=== PATIENT | male | born 1935 | race Caucasian/White ===

== ENCOUNTER 2021-11-13 11:05 | Outpatient (CLI) | payer MEDICARE, SELFPAY ==
--- NOTE | ~2021-11-13 | CT_ITS ---
EXAMINATION:CT diagnostic chest wo con DATE: 11/13/2021 11:54 INDICATION: Lung nodule. Chronic shortness of breath. TECHNIQUE: Computed tomography (CT) of the chest was performed without intravenous contrast. Automate d exposure control and iterative reconstruction technique were employed. The dose-length product (DLP ) was 153.40 mGy-cm. COMPARISON: None. FINDINGS: There are moderate-sized right and small left pleural effusions. A calcified left lung nodu le and calcified left hilar lymph nodes are consistent with old granulomatous disease. There is passi ve atelectasis in right lower lobe and right middle lobe. There is mild atelectasis in left lung. The re is smooth septal thickening in the lungs, consistent with mild pulmonary edema. Cardiomegaly is no stephanie. There are coronary artery calcifications. No pericardial effusion. There is a left chest pacer w ith lead in right ventricle. Calcifications in the spleen are consistent with old granulomatous disea se. There are cysts in left kidney measuring up to 17 mm. There are old healed right rib fractures. T here are bridging endplate osteophytes at multiple levels in the spine, consistent with diffuse idiop athic skeletal hyperostosis (DISH). There is severe thoracic spondylosis. IMPRESSION: 1. Mild pulmonary edema. 2. Moderate-sized right and small left pleural effusions. 3. Cardiomegaly. Reviewed, dictated and finalized at location A.
[2021-11-13 11:35] LABS: Basophils Absolute Auto 0.06 K/mm3 (0.00-0.10); Eosinophils Absolute Auto 0.07 K/mm3 (0.02-0.50); Eosinophils Percent Auto 1.1 % (1.0-6.0); Hematocrit 31.4 % (37.0-46.0); Hemoglobin 10.3 g/dL (12.4-15.3); Immature Granulocyte Absolute 0.02 K/mm3 (0.00-0.00); Immature Granulocyte Percent A 0.3 % (0.0-0.0); Lymphocytes Absolute Auto 0.74 K/mm3 (1.10-4.50); Lymphocytes Percent Auto 11.8 % (18.0-42.0); Mean Corpuscular HGB Conc 32.8 g/dL (32.0-36.0); Mean Corpuscular Hemoglobin 33.6 pg (27.0-31.0); Mean Corpuscular Volume 102.3 fL (78.0-102.0); Mean Platelet Volume 9.6 fl (8.7-11.0); Monocytes Absolute Auto 0.72 K/mm3 (0.10-0.90); Monocytes Percent Auto 11.5 % (2.0-11.0); Neutrophils Absolute Auto 4.7 K/mm3 (1.7-7.2); Neutrophils Percent Auto 74.3 % (50.0-70.0); Platelet Count Result 220 K/mm3 (150-420); Red Blood Count 3.07 M/mm3 (4.70-6.10); Red Cell Distribution Width 13.6 % (11.6-14.4); White Blood Count 6.3 K/mm3 (4.8-10.8)
[2021-11-13 11:52] LABS: Blood Urea Nitrogen 27 mg/dL (7-18); Calcium 9.2 mg/dL (8.5-10.1); Carbon Dioxide 27 mmol/L (21-32); Estimated Glomerular Filt Rate 46; Glucose 105 mg/dL (70-99)
[2021-11-13 12:29] LABS: Anion Gap 12 mmol/L (8-16); Chloride 102 mmol/L (98-108); Osmolality Calculated 297 mOsm/kg (285-295); Potassium 3.4 mmol/L (3.5-5.1); Sodium 141 mmol/L (136-145)
== END 2021-11-13 11:06 | disposition home or self-care (01) ==
LOC: CHSLAB 11:14
PROVIDERS: PCP Family Medicine
DX: I48.19 Other persistent atrial fibrillation (principal); I42.0 Dilated cardiomyopathy
CPT/HCPCS: 36415; 71250; 80048; 85025

== ENCOUNTER 2021-12-13 11:28 | Outpatient (CLI) | payer MEDICARE, SELFPAY ==
[2021-12-13 12:11] LABS: Anion Gap 7 mmol/L (8-16); Blood Urea Nitrogen 25 mg/dL (7-18); Calcium 9.1 mg/dL (8.5-10.1); Carbon Dioxide 29 mmol/L (21-32); Chloride 102 mmol/L (98-108); Estimated Glomerular Filt Rate 46; Glucose 99 mg/dL (70-99); Osmolality Calculated 290 mOsm/kg (285-295); Potassium 4.3 mmol/L (3.5-5.1); Sodium 138 mmol/L (136-145)
== END 2021-12-13 11:29 | disposition home or self-care (01) ==
LOC: CHSLAB 11:32
PROVIDERS: PCP Internal Medicine
DX: E87.6 Hypokalemia (principal)
CPT/HCPCS: 36415; 80048

== ENCOUNTER 2022-05-31 09:15 | Outpatient (CLI) | payer MEDICARE, SELFPAY ==
[2022-05-31 09:33] LABS: Basophils Absolute Auto 0.05 K/mm3 (0.00-0.10); Basophils Percent Auto 0.6 % (0.0-1.0); Eosinophils Absolute Auto 0.09 K/mm3 (0.02-0.50); Eosinophils Percent Auto 1.2 % (1.0-6.0); Hematocrit 39.9 % (37.0-46.0); Hemoglobin 12.8 g/dL (12.4-15.3); Immature Granulocyte Absolute 0.04 K/mm3 (0.00-0.00); Immature Granulocyte Percent A 0.5 % (0.0-0.0); Lymphocytes Absolute Auto 0.92 K/mm3 (1.10-4.50); Lymphocytes Percent Auto 11.9 % (18.0-42.0); Mean Corpuscular HGB Conc 32.1 g/dL (32.0-36.0); Mean Corpuscular Hemoglobin 30.2 pg (27.0-31.0); Mean Corpuscular Volume 94.1 fL (78.0-102.0); Monocytes Absolute Auto 0.78 K/mm3 (0.10-0.90); Monocytes Percent Auto 10.1 % (2.0-11.0); Neutrophils Absolute Auto 5.8 K/mm3 (1.7-7.2); Neutrophils Percent Auto 75.7 % (50.0-70.0); Platelet Count Result 236 K/mm3 (150-420); Red Blood Count 4.24 M/mm3 (4.70-6.10); Red Cell Distribution Width 14.1 % (11.6-14.4); White Blood Count 7.7 K/mm3 (4.8-10.8)
[2022-05-31 10:06] LABS: Alanine Aminotransferase 24 U/L (16-63); Albumin Level 3.7 g/dL (3.4-5.0); Alkaline Phosphatase 136 U/L (46-116); Anion Gap 9 mmol/L (8-16); Aspartate Amino Transferase 19 U/L (15-37); Bilirubin,Total 1.4 mg/dL (0.00-1.00); Blood Urea Nitrogen 22 mg/dL (7-18); Calcium 9.3 mg/dL (8.5-10.1); Carbon Dioxide 29 mmol/L (21-32); Chloride 103 mmol/L (98-108); Cholesterol 146 mg/dL (0-200); Estimated Glomerular Filt Rate 47; Glucose 108 mg/dL (70-99); HDL Direct 59 mg/dL (40-60); LDL Cholesterol Calculated 75 mg/dL (<130); Osmolality Calculated 296 mOsm/kg (285-295); Potassium 4.5 mmol/L (3.5-5.1); Sodium 141 mmol/L (136-145); Total Protein 7.3 g/dL (6.4-8.2); Triglycerides 61 mg/dL (0-150)
== END 2022-05-31 09:16 | disposition home or self-care (01) ==
LOC: CHSLAB 09:19
PROVIDERS: PCP Family Medicine
DX: R00.1 Bradycardia, unspecified (principal); E87.6 Hypokalemia; I48.19 Other persistent atrial fibrillation; Z13.220 Encounter for screening for lipoid disorders; Z13.6 Encounter for screening for cardiovascular disorders
CPT/HCPCS: 36415; 80053; 80061; 85025

== ENCOUNTER 2022-12-02 10:25 | Outpatient (CLI) | payer MEDICARE, SELFPAY ==
[2022-12-02 10:43] LABS: Basophils Absolute Auto 0.04 K/mm3 (0.00-0.10); Basophils Percent Auto 0.7 % (0.0-1.0); Eosinophils Absolute Auto 0.06 K/mm3 (0.02-0.50); Hematocrit 35.7 % (37.0-46.0); Hemoglobin 11.3 g/dL (12.4-15.3); Immature Granulocyte Absolute 0.02 K/mm3 (0.00-0.00); Immature Granulocyte Percent A 0.3 % (0.0-0.0); Lymphocytes Absolute Auto 0.76 K/mm3 (1.10-4.50); Lymphocytes Percent Auto 12.6 % (18.0-42.0); Mean Corpuscular HGB Conc 31.7 g/dL (32.0-36.0); Mean Corpuscular Hemoglobin 28.4 pg (27.0-31.0); Mean Corpuscular Volume 89.7 fL (78.0-102.0); Monocytes Absolute Auto 0.68 K/mm3 (0.10-0.90); Monocytes Percent Auto 11.3 % (2.0-11.0); Neutrophils Absolute Auto 4.5 K/mm3 (1.7-7.2); Neutrophils Percent Auto 74.1 % (50.0-70.0); Platelet Count Result 243 K/mm3 (150-420); Red Blood Count 3.98 M/mm3 (4.70-6.10); Red Cell Distribution Width 18.2 % (11.6-14.4)
[2022-12-02 11:20] LABS: Alanine Aminotransferase 27 U/L (16-63); Albumin Level 3.2 g/dL (3.4-5.0); Alkaline Phosphatase 137 U/L (46-116); Anion Gap 12 mmol/L (8-16); Aspartate Amino Transferase 19 U/L (15-37); Bilirubin,Total 1.2 mg/dL (0.00-1.00); Blood Urea Nitrogen 20 mg/dL (7-18); Calcium 9.1 mg/dL (8.5-10.1); Carbon Dioxide 27 mmol/L (21-32); Chloride 102 mmol/L (98-108); Cholesterol 126 mg/dL (0-200); Estimated Glomerular Filt Rate 45; Glucose 94 mg/dL (70-99); HDL Direct 54 mg/dL (40-60); LDL Cholesterol Calculated 60 mg/dL (<130); Osmolality Calculated 294 mOsm/kg (285-295); Potassium 4.4 mmol/L (3.5-5.1); Sodium 141 mmol/L (136-145); Total Protein 7.1 g/dL (6.4-8.2); Triglycerides 58 mg/dL (0-150)
== END 2022-12-02 10:26 | disposition home or self-care (01) ==
LOC: CHSLAB 10:29
PROVIDERS: PCP Family Medicine
DX: I48.21 Permanent atrial fibrillation (principal); Z13.220 Encounter for screening for lipoid disorders; I42.0 Dilated cardiomyopathy; Z13.6 Encounter for screening for cardiovascular disorders
CPT/HCPCS: 36415; 80053; 80061; 85025

== ENCOUNTER 2023-09-01 11:14 | Outpatient (CLI) | payer MEDICARE, SELFPAY ==
[2023-09-01 11:50] LABS: Basophils Absolute Auto 0.04 K/mm3 (0.00-0.10); Basophils Percent Auto 0.5 % (0.0-1.0); Eosinophils Absolute Auto 0.02 K/mm3 (0.02-0.50); Eosinophils Percent Auto 0.2 % (1.0-6.0); Hematocrit 33.7 % (37.0-46.0); Immature Granulocyte Absolute 0.04 K/mm3 (0.00-0.00); Immature Granulocyte Percent A 0.5 % (0.0-0.0); Lymphocytes Absolute Auto 0.55 K/mm3 (1.10-4.50); Lymphocytes Percent Auto 6.8 % (18.0-42.0); Mean Corpuscular HGB Conc 29.7 g/dL (32-36); Mean Corpuscular Hemoglobin 25.7 pg (27.0-31.0); Mean Corpuscular Volume 86.6 fL (78.0-102.0); Mean Platelet Volume 9.7 fl (8.7-11.0); Monocytes Absolute Auto 0.76 K/mm3 (0.10-0.90); Monocytes Percent Auto 9.3 % (2.0-11.0); Neutrophils Absolute Auto 6.73 K/mm3 (1.70-7.20); Neutrophils Percent Auto 82.7 % (50.0-70.0); Platelet Count Result 293 K/mm3 (150-420); Red Blood Count 3.89 M/mm3 (4.70-6.10); White Blood Count 8.1 K/mm3 (4.8-10.8)
[2023-09-01 12:20] LABS: Anion Gap 11 mmol/L (4-12); Blood Urea Nitrogen 25 mg/dL (7-18); Calcium 9.2 mg/dL (8.5-10.1); Carbon Dioxide 29 mmol/L (21-32); Chloride 103 mmol/L (98-108); Estimated Glomerular Filt Rate 48; Glucose 97 mg/dL (70-99); Osmolality Calculated 300 mOsm/kg (285-295); Potassium 4.4 mmol/L (3.5-5.1); Sodium 143 mmol/L (136-145)
== END 2023-09-01 11:15 | disposition home or self-care (01) ==
LOC: CHSLAB 11:18
PROVIDERS: PCP Family Medicine
DX: I48.19 Other persistent atrial fibrillation (principal); R06.00 Dyspnea, unspecified
CPT/HCPCS: 36415; 80048; 85025

== ENCOUNTER 2023-09-12 10:01 | Emergency (ER) | payer MEDICARE, SELFPAY ==
[2023-09-12] VITALS (32 sets, daily range): BP systolic 89–114; BP diastolic 64–88; PULSE 68–78; RESP 16–30; TEMP 37; O2SAT 94–100
--- NOTE | ~2023-09-12 | XR_ITS ---
EXAMINATION: XR pelvis 1-2V DATE: 09/12/2023 10:55 INDICATION: Fall TECHNIQUE: An anteroposterior view of the pelvis was obtained. COMPARISON: None. FINDINGS: Diffuse osteopenia which decreases sensitivity for nondisplaced fracture. No fractures identified. Os seous fusion at the left hip joint with screw fixation. There is suggestion of prior loss of bone sto ck at the humeral head and acetabulum with hip fused with some cephalad migration of the left femur. 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 Severe lower lumbar spondylosis. IMPRESSION: 1. No acute osseous abnormality. Sensitivity for nondisplaced fractures decreased by diffuse osteopen ia. 2. Left hip ankylosis with screw fixation. Reviewed, dictated and finalized at location A. IMPRESSION: 1. No acute osseous abnormality. Sensitivity for nondisplaced fractures decreas ed by diffuse osteopenia. 2. Left hip ankylosis with screw fixation.
--- NOTE | ~2023-09-12 | CT_ITS ---
EXAMINATION: CT cervical spine wo con DATE: 09/12/2023 10:55 INDICATION: Fall with head injury TECHNIQUE: Computed tomography (CT) of the cervical spine was performed without intravenous contrast. Automated exposure control and iterative reconstruction technique were employed. The dose-length pro duct was 147.99 mGy-cm. COMPARISON: None FINDINGS: Severe osteoarthritis at the atlantoaxial articulation. Mild cervical levocurvature. 3 mm anterolisth esis C2 on C3 and 2 mm anterolisthesis C7 on T1. Vertebral body heights are normal. No acute fracture . Multilevel severe disc height loss from C2-C3 through C6-C7 and at T1-T2 with moderate disc height loss at C7-T1. There are multilevel associated degenerative endplate changes with severe uncovertebra l osteoarthritis. Severe facet osteoarthritis on the right at C2-C3 and bilaterally at C7-T1 with mod erate facet osteoarthritis the remaining cervical facet joints. Atherosclerotic calcification is at t he bilateral carotid bulbs. Cervical soft tissues are otherwise unremarkable. Pleural effusion of sim ple fluid attenuation at the right apex. IMPRESSION: 1. Severe cervical spondylosis. No acute osseous abnormality. 2. Large right pleural effusion extending to the apex. Reviewed, dictated and finalized at location A.
--- NOTE | ~2023-09-12 | CT_ITS ---
EXAMINATION: CT brain wo con DATE: 09/12/2023 10:54 INDICATION: Accidental fall with facial injury TECHNIQUE: Computed tomography (CT) of the head was performed without intravenous contrast. Sagittal and coronal reconstructions were performed. The mA was adjusted according to patient size. Iterative reconstruction technique was employed. The dose-length product was 605.33 mGy-cm. COMPARISON: None FINDINGS: No fracture. No acute intracranial hemorrhage, acute infarction or abnormal extra axial fluid collect ion. 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 There is mild scattered white matter hypoat tenuation consistent with chronic small vessel ischemic disease. Symmetric prominence of the sulci an d ventricles consistent with mild to moderate age-appropriate diffuse cerebral volume loss. Ventricle s are normal and symmetric. No mass/mass effect. Changes of bilateral intraocular lens replacement. T he orbits, paranasal sinuses and mastoid air cells are normal. IMPRESSION: 1. No fracture or acute intracranial process. 2. 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 3. Age-related changes including moderate diffuse volume loss and mild scattered white matter hypoatt enuation consistent with chronic small vessel ischemic disease. Reviewed, dictated and finalized at location A. IMPRESSION: 1. No fracture or acute intracranial process. 2. 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 3. Age-related changes including moderate diffuse volume loss and mild scattere d white matter hypoattenuation consistent with chronic small vessel ischemic di sease.
--- NOTE | ~2023-09-12 | XR_ITS ---
EXAMINATION: XR chest 1V portable DATE: 09/12/2023 10:54 INDICATION: Shortness of breath and fall TECHNIQUE: frontal view of the chest was obtained. COMPARISON: Chest CT dated 11/13/2021 FINDINGS: Near complete opacification of the right hemithorax consistent with large right pleural effusion. The re is small amount of residual aerated lung in the right upper lung zone. Left lung is clear with no focal airspace opacities, pulmonary edema or pleural effusion. No pneumothorax. Cardiomegaly. Calcifi ed left hilar lymph nodes consistent with old granulomatous disease. Single lead cardiac pacemaker wi th lead tip at the apex of the right ventricle. There are a few minimally displaced acute-appearing l ateral right rib fractures. IMPRESSION: 1. Large right pleural effusion with near complete opacification of the right hemithorax. Underlying pneumonia or malignancy not excludable. There are however also few acute appearing right-sided rib fr actures in this could represent a posttraumatic hemothorax. Could consider further evaluation with ei ther CT or diagnostic thoracentesis. 2. Cardiomegaly. Reviewed, dictated and finalized at location A. IMPRESSION: 1. Large right pleural effusion with near complete opacification of the right h emithorax. Underlying pneumonia or malignancy not excludable. There are however also few acute appearing right-sided rib fractures in this could represent a p osttraumatic hemothorax. Could consider further evaluation with either CT or di agnostic thoracentesis. 2. Cardiomegaly.
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
--- NOTE | 2023-09-12 12:24 | ECG_ITS ---
SEE SCANNED COPY FOR CONFIRMED REPORT MTDD
[2023-09-12 12:52] LABS: Basophils Absolute Auto 0.05 K/mm3 (0.00-0.10); Basophils Percent Auto 0.4 % (0.0-1.0); Hematocrit 35.3 % (37.0-46.0); Hemoglobin 10.4 g/dL (12.4-15.3); Immature Granulocyte Absolute 0.06 K/mm3 (0.00-0.00); Immature Granulocyte Percent A 0.5 % (0.0-0.0); Lymphocytes Absolute Auto 0.44 K/mm3 (1.10-4.50); Lymphocytes Percent Auto 3.8 % (18.0-42.0); Mean Corpuscular HGB Conc 29.5 g/dL (32-36); Mean Corpuscular Hemoglobin 25.7 pg (27.0-31.0); Mean Corpuscular Volume 87.2 fL (78.0-102.0); Mean Platelet Volume 9.7 fl (8.7-11.0); Monocytes Absolute Auto 0.77 K/mm3 (0.10-0.90); Monocytes Percent Auto 6.7 % (2.0-11.0); Neutrophils Absolute Auto 10.13 K/mm3 (1.70-7.20); Neutrophils Percent Auto 88.6 % (50.0-70.0); Platelet Count Result 273 K/mm3 (150-420); Red Blood Count 4.05 M/mm3 (4.70-6.10); Red Cell Distribution Width 17.3 % (11.6-14.4); White Blood Count 11.5 K/mm3 (4.8-10.8)
[2023-09-12 13:07] LABS: INR 1.3; Partial Thromboplastin Time 29.1 Sec (23.9-30.70)
[2023-09-12 13:09] LABS: D Dimer 4.25 mg/L (0.19-0.50)
--- NOTE | 2023-09-12 13:09 | PC.NURSE ---
lab reports critical DDimer of 4.25. ERP made aware.
[2023-09-12 13:19] LABS: Alanine Aminotransferase 24 U/L (16-63); Alkaline Phosphatase 103 U/L (46-116); Anion Gap 11 mmol/L (4-12); Aspartate Amino Transferase 25 U/L (15-37); Bilirubin,Total 2.3 mg/dL (0.00-1.00); Blood Urea Nitrogen 22 mg/dL (7-18); Calcium 9.5 mg/dL (8.5-10.1); Carbon Dioxide 26 mmol/L (21-32); Chloride 101 mmol/L (98-108); Estimated CRCL calculation 29 ml/min; Estimated Glomerular Filt Rate 52; Glucose 83 mg/dL (70-99); Lactic Acid Reflex 2.2 mmol/L (0.4-2.0); Osmolality Calculated 288 mOsm/kg (285-295); Potassium 3.7 mmol/L (3.5-5.1); Sodium 138 mmol/L (136-145); Total Protein 6.5 g/dL (6.4-8.2)
[2023-09-12 13:20] LABS: Troponin I 89.6 ng/L (0.00-60.4)
--- NOTE | 2023-09-12 13:20 | PC.NURSE ---
Lab reports critical troponin of 89.6. ERP made aware.
[2023-09-12 13:23] LABS: NT Pro B Type Natriuretic Pept 15035 pg/mL (0-450)
[2023-09-12 15:49] LABS: Reflex Lactic Acid Yes or No Add Lactic
== END 2023-09-12 15:51 | disposition short-term general hospital (02) ==
PROVIDERS: Emergency Provider Internal Medicine Critical Care Medicine; PCP Family Medicine
DX: J90 Pleural effusion, not elsewhere classified (principal); R79.89 Other specified abnormal findings of blood chemistry; S09.93XA Unspecified injury of face, initial encounter; S49.91XA Unspecified injury of right shoulder and upper arm, initial encounter; S49.92XA Unspecified injury of left shoulder and upper arm, initial encounter; I50.9 Heart failure, unspecified; I48.91 Unspecified atrial fibrillation; Z95.0 Presence of cardiac pacemaker; N18.31 Chronic kidney disease, stage 3a; W18.39XA Other fall on same level, initial encounter; Z79.01 Long term (current) use of anticoagulants
CPT/HCPCS: 36415; 70450; 71045; 72125; 72170; 80053; 83605; 83880; 84484; 85025; 85380; 85610; 85730; 93005; 99285